=== PATIENT | female | born 1970 | race African-American/Black ===

== ENCOUNTER 2021-04-15 09:52 | Emergency (ER) | payer OTHER ==
[~2021-04-15] VITALS: Ht 180.3 cm; Wt 91.6 kg
[~2021-04-15 09:52] MED LIST: HALO1TAB99 PO; LISI-486 PO
[2021-04-15 10:04] VITALS: BP 174/100
--- NOTE | 2021-04-15 10:35 | NUR ---
50/F BIB SELF WITH C/O LEFT FLANK PAIN AND LOWER ABDOMEN PAIN X1 MONTH. PATIENT STATES SHE WENT TO SEE HER PCP ONE MONTH AGO AND WAS DX WITH UTI, STATES SHE COMPLETED HER ANTIBIOTICS BUT THE PAIN PERSISTED. PATIENT REPORTS GOING TO URGENT CARE TWO WEEKS AGO AND WAS TOLD SHE HAD "EXCESSIVE PROTEIN" IN HER URINE, STATING SHE WAS REFERRED TO GO BACK TO HER PCP OR ER. PATIENT STATES PAIN HAS BEEN CONTINUOUS ON LEFT SIDE AND LOWER ABDOMEN, DENIES N/V/D OR URINARY SYMPTOMS. REPORTS TAKING IBUPROFEN WITH MILD RELIEF, STATES 6/10 SHARP PAIN.
--- NOTE | 2021-04-15 11:27 | NUR ---
PATIENT TAKEN TO CT VIA GURNEY.
--- NOTE | 2021-04-15 11:36 | NUR ---
PATIENT RETURNED FROM CT.
--- NOTE | 2021-04-15 13:00 | NUR ---
PATIENT APPEARS TO BE RESTING IN BED AWAITING RESULTS. WILL CONTINUE TO MONITOR.
[2021-04-15 13:26] LABS: BASOPHILS # (AUTO) 0.1 K/uL (0.00-0.22); BASOPHILS % (AUTO) 1.1 % (0.0-2.0); EOSINOPHILS # (AUTO) 0.1 K/uL (0-0.4); EOSINOPHILS % (AUTO) 1.2 % (0.0-4.0); HEMOGLOBIN 12.4 g/dL (12.0-16.0); LYMPHOCYTES # (AUTO) 1.7 K/uL (2.5-16.5); LYMPHOCYTES % (AUTO) 38.2 % (20.5-51.1); MEAN CORPUSCULAR HEMOGLOBIN 27 pg (27-31); MEAN CORPUSCULAR HGB CONC 33 g/dL (33-37); MEAN CORPUSCULAR VOLUME 80.5 fL (80-94); MONOCYTES # (AUTO) 0.3 K/uL (0.8-1.0); NEUTROPHILS # (AUTO) 2.4 K/uL (1.8-7.7); NEUTROPHILS % (AUTO) 52.5 % (42.2-75.2); PLATELET COUNT (AUTO) 294 K/uL (140-450); RED CELL DISTRIBUTION WIDTH 14.2 % (11.6-13.7); WHITE BLOOD COUNT (AUTO) 4.5 K/uL (4.8-10.8)
[2021-04-15 13:34] LABS: ALBUMIN 3.3 g/dL (3.4-5.0); ANION GAP 10.1 (8-16); CARBON DIOXIDE 30.2 mmol/L (21-32); CREATININE 0.8 mg/dL (0.6-1.3); POTASSIUM 4.3 mmol/L (3.5-5.1); TOTAL BILIRUBIN 0.5 mg/dL (0.0-1.0)
[2021-04-15 14:07] VITALS: BP 154/88
--- NOTE | 2021-04-15 14:21 | NUR ---
PATIENT ELOPED FROM FACILITY. DISCHARGE INSTRUCTIONS NOT GIVEN TO PATIENT. DR. SERRATO NOTIFIED.
[2021-04-15 14:56] LABS: BILIRUBIN,URINE NEGATIVE (NEGATIVE); BLOOD, URINE NEGATIVE (NEGATIVE); COLOR,URINE YELLOW (YELLOW); LEUKOCYTE ESTERASE ,URINE TRACE (NEGATIVE); NITRITE, URINE NEGATIVE (NEGATIVE); UGLUCOSE NEGATIVE (NEGATIVE)
[2021-04-15 15:08] LABS: APPEARANCE,URINE HAZY (CLEAR)
[2021-04-15 15:16] LABS: RBC,URINE 0-5 /HPF (0-5); WBC,URINE 0-5 /HPF (0-5)
== END 2021-04-15 14:20 | disposition left against medical advice (07) ==
LOC: MED 09:52
DX: N28.1 Cyst of kidney, acquired (principal); I10 Essential (primary) hypertension; R10.9 Unspecified abdominal pain; F17.200 Nicotine dependence, unspecified, uncomplicated; Z90.49 Acquired absence of other specified parts of digestive tract; Z98.890 Other specified postprocedural states; Z79.899 Other long term (current) drug therapy
CPT/HCPCS: 36415; 80053; 81001; 81025; 85025; 99284; 99285

== ENCOUNTER 2021-08-25 18:41 | Inpatient (IN) | payer OTHER ==
[~2021-08-25] VITALS: Ht 180.3 cm; Wt 124.7 kg
[2021-08-25 18:42] VITALS: BP 150/96
--- NOTE | 2021-08-25 18:49 | NUR ---
PT TAKEN TO BED 07 VIA W/C.
--- NOTE | 2021-08-25 19:16 | NUR ---
Dr. Fried examining patient.
[2021-08-25] MEDS ORDERED: NACL 0.9% 1,000 ML IV ONE ×2 (19:25)
[2021-08-25] MEDS ORDERED: KETOROLAC 15 MG/ML VIAL IVP ONE (19:25)
--- NOTE | 2021-08-25 19:30 | NUR ---
20G IV CATH LEFT AC LABS AND URINE OBTAINED SENT TO LAB.
--- NOTE | 2021-08-25 20:00 | NUR ---
CT HERE FOR PATIENT
--- NOTE | 2021-08-25 20:03 | NUR ---
PT TAKEN TO RADIOLOGY
--- NOTE | 2021-08-25 20:15 | NUR ---
PT RETURN FROM RADIOLOGY
--- NOTE | 2021-08-25 20:19 | NUR ---
Patient refused Tramadol IV medication, Dr. Fried notified.
[2021-08-25] MEDS ORDERED: IBUPROFEN 600 MG TAB PO ONE (20:20)
[2021-08-25 20:28] LABS: BASOPHILS # (AUTO) 0.1 K/uL (0.00-0.22); BASOPHILS % (AUTO) 1.2 % (0.0-2.0); BILIRUBIN,URINE NEGATIVE (NEGATIVE); BLOOD, URINE 1+ (NEGATIVE); COLOR,URINE YELLOW (YELLOW); EOSINOPHILS # (AUTO) 0.1 K/uL (0-0.4); EOSINOPHILS % (AUTO) 1.1 % (0.0-4.0); HEMATOCRIT 40.2 % (36-48); HEMOGLOBIN 13.2 g/dL (12.0-16.0); LEUKOCYTE ESTERASE ,URINE 1+ (NEGATIVE); LYMPHOCYTES # (AUTO) 2.2 K/uL (2.5-16.5); MEAN CORPUSCULAR HEMOGLOBIN 27 pg (27-31); MEAN CORPUSCULAR HGB CONC 33 g/dL (33-37); MEAN CORPUSCULAR VOLUME 80.3 fL (80-94); MONOCYTES # (AUTO) 0.2 K/uL (0.8-1.0); MONOCYTES % (AUTO) 3.2 % (1.7-9.3); NEUTROPHILS # (AUTO) 4.7 K/uL (1.8-7.7); NEUTROPHILS % (AUTO) 64.5 % (42.2-75.2); NITRITE, URINE NEGATIVE (NEGATIVE); PLATELET COUNT (AUTO) 353 K/uL (140-450); RED CELL DISTRIBUTION WIDTH 14.1 % (11.6-13.7); UGLUCOSE NEGATIVE (NEGATIVE); WHITE BLOOD COUNT (AUTO) 7.2 K/uL (4.8-10.8)
[2021-08-25 20:29] LABS: APPEARANCE,URINE HAZY (CLEAR)
[2021-08-25 20:46] LABS: RBC,URINE NONE SEEN /HPF (0-5); WBC,URINE 20-60 /HPF (0-5)
[2021-08-25 21:05] LABS: ALBUMIN 3.7 g/dL (3.4-5.0); ANION GAP 11.3 (8-16); CARBON DIOXIDE 29.5 mmol/L (21-32); CREATININE 0.9 mg/dL (0.6-1.3); TOTAL BILIRUBIN 0.5 mg/dL (0.0-1.0)
[2021-08-25 21:08] LABS: POTASSIUM 5.8 mmol/L (3.5-5.1)
--- NOTE | 2021-08-25 21:22 | NUR ---
Leonel galloway in [facility] - 08/25/21 at 2125 by ELIZ 20G IV CATH LEFT AC
[2021-08-25] MEDS ORDERED: cephALEXin 500 MG CAP PO ONE (21:40)
[2021-08-25] MEDS ORDERED: MORPHINE SULFATE 4 MG/ML SYR IVP ONE (21:50)
[2021-08-25] MEDS ORDERED: ceFAZolin 1,000 MG VIAL ONE (22:10)
[2021-08-25] MEDS ORDERED: ONDANSETRON 4 MG/2 ML VIAL IVP PRN (22:30)
[2021-08-25] MEDS ORDERED: METOCLOPRAMIDE 10 MG/2 ML INJ VIAL IVP PRN (22:30)
[2021-08-25] MEDS ORDERED: MORPHINE SULFATE 4 MG/ML SYR IVP PRN (22:30)
[2021-08-25] MEDS ORDERED: HYDROcodone/APAP 5/325 MG 1 TAB TAB PO PRN (22:30)
[2021-08-25] MEDS ORDERED: POTASSIUM CHLORIDE 10 MEQ TABER PO PRN (22:30)
[2021-08-25] MEDS ORDERED: MAGNESIUM OXIDE 400 MG TAB PO PRN (22:30)
[2021-08-25] MEDS ORDERED: ONDANSETRON 4 MG/2 ML VIAL IVP ONE (22:40)
[2021-08-25] MEDS ORDERED: cefTRIAXone 1,000 MG VIAL ONE (22:41)
[2021-08-25 22:51] LABS: ALBUMIN 3.4 g/dL (3.4-5.0); ANION GAP 8.5 (8-16); CARBON DIOXIDE 29.5 mmol/L (21-32); TOTAL BILIRUBIN 0.3 mg/dL (0.0-1.0)
[2021-08-25] MEDS ORDERED: ASPI-1822 PO (23:21)
[2021-08-25] MEDS ORDERED: VIT1TABL36 PO (23:21)
--- NOTE | 2021-08-25 23:37 | NUR ---
PT ADMITTED TO [facility] . MED SURG ADMIT ORDERS. PT ON MONITOR AND RESTING IN BED.
--- NOTE | 2021-08-26 01:00 | NUR ---
BED ASSIG 112B , APPLE TO RECIEVE PT
--- NOTE | 2021-08-26 01:10 | NUR ---
PT ARRIVED FROM ER VIA [facility]. BEDSIDE HANDOFF REPORT GIVEN BY BERNARD ER NURSE. PT AMBULATED TO BED FROM [facility]. GAIT STEADY. CT DONE IN ER. CYSTS ON KIDNEYS DID NOT RUPTURE. SETTLED IN BED. ORIENTED TO ROOM ,CALL LIGHT, BATHROOM , HOSPITAL ROUTINE. MRSA SWAB COLLECTED AND SENT TO LAB. VSS . PT ABLE TO MAKE NEEDS KNOWN. CALL LIGHT WITHIN REACH. WILL CONTINUE TO MONITOR.
[2021-08-26] MEDS: NACL 0.9% 1,000 ML IV SCH ×2 (01:37→13:50)
--- NOTE | 2021-08-26 01:40 | NUR ---
Patient will be admitted to care of dr méndez. Admited to MED SURG. Will go to [id number]. Belongings list completed. Report to APPLE.
--- NOTE | 2021-08-26 01:42 | NUR ---
Chart checked and completed. The patient's care was reviewed and supervised by Kayli Ochoa RN.
[2021-08-26 06:59] LABS: BASOPHILS % (AUTO) 0.4 % (0.0-2.0); EOSINOPHILS % (AUTO) 0.3 % (0.0-4.0); HEMATOCRIT 36.6 % (36-48); LYMPHOCYTES # (AUTO) 1.7 K/uL (2.5-16.5); LYMPHOCYTES % (AUTO) 26.8 % (20.5-51.1); MEAN CORPUSCULAR HEMOGLOBIN 26 pg (27-31); MEAN CORPUSCULAR HGB CONC 33 g/dL (33-37); MEAN CORPUSCULAR VOLUME 80.3 fL (80-94); MONOCYTES # (AUTO) 0.5 K/uL (0.8-1.0); MONOCYTES % (AUTO) 7.2 % (1.7-9.3); NEUTROPHILS # (AUTO) 4.2 K/uL (1.8-7.7); NEUTROPHILS % (AUTO) 65.3 % (42.2-75.2); PLATELET COUNT (AUTO) 289 K/uL (140-450); RED BLOOD CELL COUNT(AUTO) 4.56 MIL/uL (4.20-5.40); WHITE BLOOD COUNT (AUTO) 6.4 K/uL (4.8-10.8)
[2021-08-26 07:14] LABS: CARBON DIOXIDE 28.1 mmol/L (21-32); CREATININE 0.9 mg/dL (0.6-1.3); POTASSIUM 4.1 mmol/L (3.5-5.1); TOTAL BILIRUBIN 0.4 mg/dL (0.0-1.0)
--- NOTE | 2021-08-26 07:41 | NUR ---
received the report from the night nurse, pt is resting no discomfort [id number]
--- NOTE | 2021-08-26 09:33 | NUR ---
PATIENT HAS BEEN SCREENED AND CATEGORIZED LOW NUTRITION RISK. PATIENT WILL BE SEEN WITHIN 7 DAYS OF ADMISSION. 09/01/[address]
[2021-08-26] MEDS: ACETAMINOPHEN 325 MG TAB PO PRN ×2 (10:23→22:28)
--- NOTE | 2021-08-26 15:26 | NUR ---
DC PLANNING PATIENT IS A 51 YR OLD FEMALE WHO PRESENTED TO [facility]/ED ON 08/25/21 FOR RADIATING PAIN IN THE ABDOMEN. PATIENT HAS HX OF GALLSTONES. SW MET WITH PATIENT AT BEDSIDE FOR THE PURPOSE OF DISCUSSING AND GATHERING COLLATERAL INFORMATION. PATIENT REPORTS LIVING WITH HER CHILDREN IN AN APT. PATIENT REPORTS BEING AMBULATORY WITH NO ASSISTANCE. PATIENT REPORTED EMERGENCY CONTACT AND MEDICAL DECISION MAKER MAYRA LAUGHLIN ([id number]). SW INQUIRED ON A.D; PATIENT DENIED CURRENTLY HAVING ONE IN PLACE AND DECLINED PACKET INFORMATION PROVIDED BY [employer]. PATIENT REPORTS MEETING WITH PCP REGULARLY;LAST VISIT WAS 2 MONTHS PRIOR. PATIENT DENIES BARRIERS IN ACCESSING MEDICATION AND REPORTS PICKING UP MEDICATION AT [facility] IN [place],WHEN NEEDED. PATIENT REPORTS PLAN TO DISCHARGE HOME AND REPORTS THAT DAUGHTER WILL PCIK UP FROM HOSPITAL ONCE CLEARED. PATIENT REPORTS THAT CHILDREN WILL BE AIDING IN HER CARE IF NEEDED. PATIENT REPORTS SUFFICIENT FRIEND AND FAMILY SUPPORT. SW INQUIRED ON RESOURCES NEEDED; PATIENT DECLINED RESOURCES AT THIS TIME. SW TO FOLLOW UP NEEDED.
[2021-08-26 15:43] VITALS: BP 119/79
--- NOTE | 2021-08-26 19:30 | NUR ---
RECEIVEDE PT FROM AM NURSE FOR CONTINUITY OF CARE.PT IS STABLE
[2021-08-26 20:00] VITALS: BP 132/65
--- NOTE | 2021-08-26 21:30 | NUR ---
ALL MEDICATIONS GIVEN,,NO DISTRESS NOTED.
--- NOTE | 2021-08-26 22:30 | NUR ---
TYLENOL 650 MG GIVEN FOR ABD PAIN, NO DISTRESS NOTED.
[2021-08-27] MEDS: NACL 0.9% 1,000 ML IV SCH (00:21)
--- NOTE | 2021-08-27 01:00 | NUR ---
PT ASLEEP, BREATHING EVEN AND UNLABORED,NO DISTRESS NOTED
--- NOTE | 2021-08-27 03:00 | NUR ---
PATIENT RESTING COMFORTABLY, BREATHING EVEN AND UNLABORED,NO DISTRESS NOTED
[2021-08-27 04:00] VITALS: BP 138/70
--- NOTE | 2021-08-27 06:00 | NUR ---
PT IS AWAKE ,NO COMPLAIN OF PAIN,NO DISTRESS NOTED
[2021-08-27 06:58] LABS: BASOPHILS % (AUTO) 0.8 % (0.0-2.0); EOSINOPHILS # (AUTO) 0.1 K/uL (0-0.4); EOSINOPHILS % (AUTO) 2.8 % (0.0-4.0); HEMATOCRIT 36.2 % (36-48); HEMOGLOBIN 11.7 g/dL (12.0-16.0); LYMPHOCYTES # (AUTO) 2.5 K/uL (2.5-16.5); LYMPHOCYTES % (AUTO) 48.6 % (20.5-51.1); MEAN CORPUSCULAR HEMOGLOBIN 26 pg (27-31); MEAN CORPUSCULAR HGB CONC 32 g/dL (33-37); MEAN CORPUSCULAR VOLUME 80.8 fL (80-94); MONOCYTES # (AUTO) 0.4 K/uL (0.8-1.0); MONOCYTES % (AUTO) 8.3 % (1.7-9.3); NEUTROPHILS % (AUTO) 39.5 % (42.2-75.2); PLATELET COUNT (AUTO) 278 K/uL (140-450); RED BLOOD CELL COUNT(AUTO) 4.48 MIL/uL (4.20-5.40); RED CELL DISTRIBUTION WIDTH 14.1 % (11.6-13.7); WHITE BLOOD COUNT (AUTO) 5.1 K/uL (4.8-10.8)
--- NOTE | 2021-08-27 08:00 | NUR ---
RECEIVED PATIENT LAYING IN BED, ASLEEP. LUNGS CLEAR AND BOWELS NORMAL ACTIVE NON DISTENDED AND NONTENDER, PATIENT DENIES PAIN. PATIENT WANTS TO GO HOME, PATIENT AMBULATORY, SKIN WARM DRY AND INTACT. CALL LIGHT WITHIN REACH, PERSONAL BELONGINGS WITHIN REACH, BED AT LOWEST POSITION AND LOCKED.
[2021-08-27 09:19] LABS: ALBUMIN 3.1 g/dL (3.4-5.0); ANION GAP 11.2 (8-16); CARBON DIOXIDE 28.1 mmol/L (21-32); CREATININE 0.9 mg/dL (0.6-1.3); POTASSIUM 4.3 mmol/L (3.5-5.1); TOTAL BILIRUBIN 0.3 mg/dL (0.0-1.0)
[2021-08-27] MEDS ORDERED: CEPH-588 PO (10:57)
[2021-08-27 11:10] VITALS: BP 135/71
--- NOTE | 2021-08-27 13:00 | NUR ---
PATIENT DISCHARGED TO HOME.
--- NOTE | 2021-08-27 15:42 | NUR ---
DC PLANNING: THE PATIENT ADMITTED FROM HOME WITH C/O BILATERAL LOWER BACK PAIN, PREVIOUS H/O RIGHT KIDNEY CYST. UA +, K+ 5.8, CT ABDOMEN SHOWS RIGHT RENAL CYST, NO OTHER ACUTE FINDINGS. THE PATIENT WAS ADMITTED FOR MANAGEMENT OF PYELONEPHRITIS, GIVEN IVF'S, TORADOL IV, KEFLEX PO AND ANCEF IV IN THE ED. PRELIMINARY URINE CULTURE SHOWED GM NEGATIVE RODS, PATIENT PLACED ON ROCEPHIN IV. TODAY THE PATIENTS VITAL SIGNS ARE STABLE, PAIN IS MANAGED, DC ORDER IN PLACE, PATIENT TO RETURN HOME, FAMILY TO PROVIDE TRANSPORT. CM WILL FOLLOW.
== END 2021-08-27 11:45 | disposition home or self-care (01) | DRG 463 ==
LOC: MED 18:41 → MMU 22:34 → MTU 08-26 00:59
PROVIDERS: ADMIT Student in an Organized Health Care Education/Training Program; ATTEND Student in an Organized Health Care Education/Training Program
DX: N10 Acute pyelonephritis (principal); I10 Essential (primary) hypertension; K21.9 Gastro-esophageal reflux disease without esophagitis; Z20.822 Contact with and (suspected) exposure to COVID-19; Z90.49 Acquired absence of other specified parts of digestive tract; Z79.899 Other long term (current) drug therapy; Z98.51 Tubal ligation status; Z94.7 Corneal transplant status; Z79.82 Long term (current) use of aspirin
CPT/HCPCS: 36415; 80053; 81001; 83690; 85025; 87081; 87086; 96361; 96365; 96375; 99285; J0690; J0696; J1644; J1885; J2270; J2405; J7030; J7060